=== PATIENT | female | born 1995 | race Caucasian/White ===

== ENCOUNTER 2022-10-30 06:12 | Inpatient (IN) ==
[2022-10-30] MEDS ORDERED: OXYTOCIN 30 UNITS/500 ML BAG IV PRN ×3 (09:25→19:31)
[2022-10-30] MEDS ORDERED: LACTATED RINGER'S 1,000 ML IV PRN (09:25)
[2022-10-30] MEDS ORDERED: LIDOCAINE 1% LOCAL 20 ML VIAL INFIL PRN (09:25)
--- NOTE | 2022-10-30 09:28 | History & Physical Report ---
Date of Service October 30, 2022 Assessment & Plan (1) 40 weeks gestation of : (2) Normal labor: Plan admit for labor. fetus category one. desires epidural. arom/pit as indicated. anticipate . History of Present Illness Chief Complaint: contractions Primary Care Provider: Riaz Galdamez MD Patient is a 27yohf with iup at40 who presents to labor and delivery with contractions. Notes contractions have become more painful with observation and has had nausea with them. Notes she is uncomfortable. has been uncomplicated. and Delivery Plans [place] [facility] [place] antibody screen returned positive. Type is Rh positive Antibody screen done at [facility] [place] on 09/07/22 Negative OB Labs: Blood Type B Positive 08/08/22 Antibody Screen POSITIVE A 08/08/22 Hemoglobin 10.6 g/dl (12.0-16.0) L 08/08/22 Hematocrit 32.7 % (37.0-47.0) L 08/08/22 Mean Corpuscular Volume 82.7 fL (80.0-100.0) 05/24/22 Platelet Count 237 K/uL (130-400) 05/24/22 Rubella IgG Antibody Immune (Immune) 03/21/22 Rapid Plasma Reagin Nonreactive (Nonreactive) 08/08/22 Hepatitis B Surface Antigen. NON-REACTIVE (NON-REACTIVE) 03/21/22 Hepatitis C Antibody (EIA) NON-REACTIVE (NON-REACTIVE) 03/21/22 HIV (1&2) Ag and Ab Confirmation NON-REACTIVE (NON-REACTIVE) 03/21/22 Glucose 1 Hour 50 gm Load 102 mg/dl (70-130) 08/08/22 OB Optional Labs: Chlamydia trachomatis RNA Not Detected (NotDetected) 03/21/22 Neisseria gonorrhoeae RNA Not Detected (NotDetected) 03/21/22 Thyroid Stimulating Hormone (TSH) 1.200 uIu/ml (0.300-4.500) 09/28/21 Labs Reviewed: Declines cf/sma--mln cfdna-low risk--mln gbs neg Allergies Allergy/AdvReac Type Severity Reaction Status Date / Time No Known Allergies Allergy Verified 10/24/22 14:33 Home Medications Medication Instructions Recorded Confirmed Type prenat.vits,loly,[id number] 1 tab PO DAILY 03/14/22 10/30/22 History ferrous sulfate 1 tab PO Q OTHER DAY 10/26/22 10/30/22 History Patient History Medical History ADHD no meds Anxiety no meds History of chicken pox Surgical History H/O dilation and curettage D&E, missed 10/2021 S/P wisdom tooth extraction Family History Mother Rheumatoid arthritis Brother Autism Other Cancer Denies family history of Ovarian cancer Breast cancer Colorectal cancer Social History Smoking Status: Never smoker Second Hand Exposure: No; Do You Dip or Chew Tobacco: No; Hx Alcohol Use: No Hx Substance Use: No Preferred Language: Scottish Communication Ability: Effective Management Nurse Rn Required: No Beliefs That Will Affect Care: None marital status: marital status details: Brent Mayo (27) [phone] Current Living Situation: Spouse Current Living Situation Comment: Lives with her Brent and one dog and two cats current occupational status: employed 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 Date GA wks Lbr Lgth wt Sex Type del Anes Place Del Prov ? 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
[2022-10-30] MEDS ORDERED: ePHEDrine sulfate 50 MG/ML AMP ONE (09:41)
[2022-10-30] MEDS ORDERED: fentaNYL citrate PF 100 MCG/2 ML VIAL ONE (09:41)
[2022-10-30] MEDS ORDERED: SODIUM CHLORIDE 0.9% PF INJ 10 ML VIAL ONE (09:42)
[2022-10-30] MEDS ORDERED: fentaNYL 2MCG/ML ROPIVACAINE 1.25MG/ML 100 ML BAG EPI ONE (09:42)
[2022-10-30] MEDS ORDERED: LIDOCAINE 2%/EPINEPHRINE 1:200,000 20 ML PF ONE (09:42)
[2022-10-30] MEDS ORDERED: BUPIVACAINE 0.25% PF 30 ML VIAL ONE (09:42)
--- NOTE | 2022-10-30 09:57 | Communication Note ---
Date of Service: October 30, 2022 Blood bank made us aware of previous antibody to PG1 in her blood. she was then sent to [facility] [place] and on repeat evaluation, the antibody was negative and told was a lab error. Have not repeated since. Have not run the type and screen here yet, but Pavel in the lab notes that we will need to send to [place] for blood for her, that we will not have any here. I have requested that we send for two units. He has already ordered this. the patient and her are aware.
[2022-10-30 10:03] LABS: Hematocrit (blood only) 37.9 % (37.0-47.0); Hemoglobin 12.6 g/dl (12.0-16.0); Mean Corpuscular Hgb Conc 33.2 g/dL (32.0-36.0); Mean Corpuscular Volume 78.3 fL (80.0-100.0); Mean Platelet Volume 11.6 fL (9.4-12.4); Platelet Count 217 K/uL (130-400); RDW Coefficient of Variation 14.7 % (11.5-14.5); RDW Standard Deviation 41.9 fL (36.4-46.3); Red Blood Count 4.84 M/uL (4.20-5.40); White Blood Count 11.72 K/ul (4.8-10.8)
--- NOTE | 2022-10-30 10:25 | Anesthesiology Consultation ---
Date of Service October 30, 2022 Assessment & Plan Chart Review Chart Review: Acceptable Risk for Labor Epidural Consults Requested none ASA ASA2 Proposed Anesthesia Anesthesia Type: Labor Epidural Risk / Benefits Reviewed With: PT / POA / Parent / Guardian, Accepts Plan and Informed Consent Obtained History Height/Weight Height: 5 ft 4 in Weight: 81.647 kg Allergies Allergy/AdvReac Type Severity Reaction Status Date / Time No Known Allergies Allergy Verified 10/24/22 14:33 Medications Home Medications Medication Instructions Recorded Confirmed Last Taken prenat.vits,loly,lcf-[id number] 1 tab PO DAILY 03/14/22 10/30/22 10/28/22 12:00 ferrous sulfate 1 tab PO Q OTHER DAY 10/26/22 10/30/22 10/24/22 12:00 Past Medical History Medical History ADHD no meds Anxiety no meds History of chicken pox Exercise / Class Metabolic Activity II 4-5 Yardwork/Stairs/Walk up hill Past Family History Family History Mother Rheumatoid arthritis Brother Autism Other Cancer Denies family history of Ovarian cancer Breast cancer Colorectal cancer Past Surgical History Surgical History H/O dilation and curettage D&E, missed 10/2021 S/P wisdom tooth extraction Past Anesthesia History No Hx of Anesthesia Complications and No Family Hx of Anesthesia Complications History of PONV No Hx of PONV and No Hx of Motion Sickness Social History Smoking Status: Never smoker Do You Dip or Chew Tobacco: No Hx Alcohol Use: No Hx Substance Use: No substance use type: does not use Physical Exam Vital Signs Last Vital Signs Temp 98.1 F 10/30/22 06:30 Pulse 107 H 10/30/22 10:18 Resp 18 10/30/22 06:30 BP 111/77 10/30/22 06:44 Pulse Ox 100 10/30/22 10:18 ENMT Mouth: no dentition abnormality Thyromental Distance: > or= 3.5 Finger Breadths Mallampati Class: II Neck normal visual inspection Respiratory normal respiratory effort Auscultation: lungs clear to auscultation bilaterally Cardiovascular Rate/Rhythm: regular rate and regular rhythm Testing Laboratory Results 10/30/22 09:37
[2022-10-30] MEDS ORDERED: ROPIVACAINE 0.5% PF 5 MG/ML 20 ML VIAL EPI PRN (10:47)
[2022-10-30] MEDS ORDERED: LIDOCAINE 2%/EPINEPHRINE 1:200,000 20 ML PF EPI STA (10:47)
[2022-10-30] MEDS ORDERED: fentaNYL citrate PF 100 MCG/2 ML VIAL EPI PRN (10:47)
[2022-10-30] MEDS ORDERED: fentaNYL 2MCG/ML ROPIVACAINE 1.25MG/ML 100 ML BAG EPI PRN (10:47)
[2022-10-30] MEDS ORDERED: NALBUPHINE HCL INJ 10 MG/ML AMP IV PRN (10:47)
[2022-10-30] MEDS ORDERED: diphenhydrAMINE 50 MG/ML VIAL IV PRN (10:47)
[2022-10-30] MEDS ORDERED: BUPIVACAINE 0.25% PF 30 ML VIAL EPI STA (10:47)
[2022-10-30] MEDS ORDERED: SODIUM CHLORIDE 0.9% PF INJ 10 ML VIAL EPI PRN (10:47)
[2022-10-30] MEDS ORDERED: SODIUM CHLORIDE 0.9% PF INJ 10 ML VIAL EPI STA (10:47)
[2022-10-30] MEDS ORDERED: LIDOCAINE 2% MPF LOCAL 5 ML VIAL EPI PRN (10:47)
[2022-10-30] MEDS ORDERED: ONDANSETRON INJ 2 MG/ML 2 ML VIAL IV PRN (10:47)
[2022-10-30] MEDS ORDERED: fentaNYL citrate PF 100 MCG/2 ML VIAL EPI STA (10:47)
[2022-10-30] MEDS ORDERED: BUPIVACAINE 0.25% PF 30 ML VIAL EPI PRN (10:47)
[2022-10-30] MEDS ORDERED: NALOXONE HCL 1 MG in SODIUM CHLORIDE 0.9% 1000ML 1,000 ML IV PRN (10:47)
[2022-10-30] MEDS ORDERED: NALOXONE HCL 0.4 MG/1 ML VIAL/CARP IV PRN (10:47)
[2022-10-30] MEDS ORDERED: ePHEDrine sulfate 50 MG/ML AMP IV PRN (10:47)
--- NOTE | 2022-10-30 11:50 | Obstetrical Progress Note ---
Date of Service October 30, 2022 Assessment & Plan (1) 40 weeks gestation of : (2) Normal labor: Plan arom, fetus category one. anticipate . Blood is on the way from [place]. Admission and Anticipated Discharge Date Admission Date: October 30, 2022 Subjective comfortable with epidural Physical Exam Constitutional: WD/WN, vitals as above Psychiatric: A+Ox3, euthymic affect Genitourinary: cx--3-4/100/-2 arom--clear toco--q2-5min efm--130s with mod variabilty, accels to 160s, no decels Results & Data Vital Signs (Past 12 Hours) Vital Signs Temp Pulse Resp BP Pulse Ox 10/30/22 11:46 90 10/30/22 11:46 127/75 10/30/22 11:44 100 10/30/22 11:44 91 H 10/30/22 11:39 99 10/30/22 11:39 84 10/30/22 11:34 99 10/30/22 11:34 74 10/30/22 11:29 99 10/30/22 11:29 63 10/30/22 11:24 99 10/30/22 11:24 63 10/30/22 11:24 103/56 L 10/30/22 11:19 100 10/30/22 11:19 68 10/30/22 11:14 100 10/30/22 11:14 63 10/30/22 11:13 61 10/30/22 11:13 97/54 L 10/30/22 11:09 99 10/30/22 11:09 70 10/30/22 11:04 100 10/30/22 11:04 72 10/30/22 11:03 59 L 10/30/22 11:03 98/53 L 10/30/22 11:01 63 10/30/22 11:01 92/51 L 10/30/22 10:59 98 10/30/22 10:59 68 10/30/22 10:59 93/52 L 10/30/22 10:57 67 10/30/22 10:57 95/52 L 10/30/22 10:55 68 10/30/22 10:55 92/53 L 10/30/22 10:54 98 10/30/22 10:54 76 10/30/22 10:53 63 10/30/22 10:53 96/51 L 10/30/22 10:51 67 10/30/22 10:51 94/53 L 10/30/22 10:50 18 10/30/22 10:50 36.5 C 18 10/30/22 10:49 98 10/30/22 10:49 80 10/30/22 10:49 75 10/30/22 10:49 88/51 L 10/30/22 10:48 63 10/30/22 10:48 91/50 L 10/30/22 10:47 73 10/30/22 10:47 88/49 L 10/30/22 10:44 97 10/30/22 10:44 84 10/30/22 10:45 75 10/30/22 10:45 93/50 L 10/30/22 10:43 98 H 10/30/22 10:43 102/59 L 10/30/22 10:41 75 10/30/22 10:41 108/64 10/30/22 10:39 97 10/30/22 10:39 79 10/30/22 10:39 77 10/30/22 10:39 102/60 10/30/22 10:34 98 10/30/22 10:34 89 10/30/22 10:29 98 10/30/22 10:29 86 10/30/22 10:24 100 10/30/22 10:24 86 10/30/22 10:18 100 10/30/22 10:18 107 H 10/30/22 10:13 100 10/30/22 10:13 72 10/30/22 10:08 100 10/30/22 10:08 66 10/30/22 10:03 93 10/30/22 10:03 67 10/30/22 09:58 99 10/30/22 09:58 63 10/30/22 09:53 100 10/30/22 09:53 68 10/30/22 09:48 100 10/30/22 09:48 75 10/30/22 06:44 67 111/77 10/30/22 06:30 36.7 C 18 PG Care Time/CCT Total # of Minutes Spent Total Time Spent with Patient: Total time spent is greater than 50% in coordination of care (as documented) at patient's floor/unit and/or counseling patient: Coding Level of Care Code None Diagnoses 40 weeks gestation of Z3A.40 Normal labor O80; Z37.9
--- NOTE | 2022-10-30 15:43 | Obstetrical Progress Note ---
Date of Service October 30, 2022 Assessment & Plan (1) Normal labor: (2) 40 weeks gestation of : Plan continue current management. fetus category one. anticipate . Admission and Anticipated Discharge Date Admission Date: October 30, 2022 Subjective comfortable Physical Exam Constitutional: WD/WN, vitals as above Psychiatric: A+Ox3, euthymic affect Genitourinary: cx--6/100/-1 toco--q2-4min, pit at 4 efm--130s with mod variability, accels present, no decels Results & Data Vital Signs (Past 12 Hours) Vital Signs Temp Pulse Resp BP Pulse Ox 10/30/22 15:39 98 10/30/22 15:39 88 10/30/22 15:34 18 10/30/22 15:34 37.1 C 18 10/30/22 15:34 97 10/30/22 15:34 95 H 10/30/22 15:29 98 10/30/22 15:29 93 H 10/30/22 15:27 75 10/30/22 15:27 118/70 10/30/22 15:24 97 10/30/22 15:24 90 10/30/22 15:19 97 10/30/22 15:19 72 10/30/22 15:14 96 10/30/22 15:14 66 10/30/22 15:11 99 H 10/30/22 15:11 122/66 10/30/22 15:09 97 10/30/22 15:09 70 10/30/22 15:04 97 10/30/22 15:04 76 10/30/22 14:59 97 10/30/22 14:59 69 10/30/22 14:57 63 10/30/22 14:57 107/64 10/30/22 14:54 97 10/30/22 14:54 67 10/30/22 14:49 97 10/30/22 14:49 72 10/30/22 14:44 96 10/30/22 14:44 70 10/30/22 14:42 81 10/30/22 14:42 115/64 10/30/22 14:39 97 10/30/22 14:39 72 10/30/22 14:34 98 10/30/22 14:34 68 10/30/22 14:29 97 10/30/22 14:29 69 10/30/22 14:26 72 10/30/22 14:26 115/64 10/30/22 14:24 98 10/30/22 14:24 78 10/30/22 14:19 98 10/30/22 14:19 83 10/30/22 14:14 98 10/30/22 14:14 101 H 10/30/22 14:13 61 10/30/22 14:13 111/57 L 10/30/22 14:09 98 10/30/22 14:09 63 10/30/22 14:04 98 10/30/22 14:04 69 10/30/22 13:59 97 10/30/22 13:59 75 10/30/22 13:57 62 10/30/22 13:57 112/63 10/30/22 13:54 97 10/30/22 13:54 67 10/30/22 13:49 98 10/30/22 13:49 61 10/30/22 13:44 98 10/30/22 13:44 66 10/30/22 13:42 42 L 10/30/22 13:42 118/61 10/30/22 13:39 99 10/30/22 13:39 89 10/30/22 13:34 98 10/30/22 13:34 63 10/30/22 13:29 98 10/30/22 13:29 65 10/30/22 13:10 16 10/30/22 13:10 16 10/30/22 13:26 41 L 10/30/22 13:26 110/59 L 10/30/22 13:24 98 10/30/22 13:24 75 10/30/22 13:19 98 10/30/22 13:19 79 10/30/22 13:14 98 10/30/22 13:14 65 10/30/22 13:09 98 10/30/22 13:09 67 10/30/22 13:04 98 10/30/22 13:04 68 10/30/22 12:59 99 10/30/22 12:59 57 L 10/30/22 12:58 52 L 10/30/22 12:58 106/60 10/30/22 12:54 99 10/30/22 12:54 56 L 10/30/22 12:49 99 10/30/22 12:49 69 10/30/22 12:44 99 10/30/22 12:44 56 L 10/30/22 12:44 106/62 10/30/22 12:39 98 10/30/22 12:39 56 L 10/30/22 12:34 98 10/30/22 12:34 62 10/30/22 12:29 99 10/30/22 12:29 68 10/30/22 12:29 108/60 10/30/22 12:24 91 10/30/22 12:24 91 H 10/30/22 12:19 99 10/30/22 12:19 79 10/30/22 12:14 98 10/30/22 12:14 64 10/30/22 12:15 60 10/30/22 12:15 109/58 L 10/30/22 12:12 94 10/30/22 12:12 83 10/30/22 12:09 99 10/30/22 12:09 86 10/30/22 12:04 98 10/30/22 12:04 83 10/30/22 11:59 100 10/30/22 11:59 84 10/30/22 11:58 126/81 10/30/22 11:54 98 10/30/22 11:54 76 10/30/22 11:49 98 10/30/22 11:49 82 10/30/22 11:46 90 10/30/22 11:46 127/75 10/30/22 11:44 100 10/30/22 11:44 91 H 10/30/22 11:39 99 10/30/22 11:39 84 10/30/22 11:34 99 10/30/22 11:34 74 10/30/22 11:29 99 10/30/22 11:29 63 10/30/22 11:24 99 10/30/22 11:24 63 10/30/22 11:24 103/56 L 10/30/22 11:19 100 10/30/22 11:19 68 10/30/22 11:14 100 10/30/22 11:14 63 10/30/22 11:13 61 10/30/22 11:13 97/54 L 10/30/22 11:09 99 10/30/22 11:09 70 07/23/23 11:04 100 10/30/22 11:04 72 10/30/22 11:03 59 L 10/30/22 11:03 98/53 L 10/30/22 11:01 63 10/30/22 11:01 92/51 L 10/30/22 10:59 98 10/30/22 10:59 68 10/30/22 10:59 93/52 L 10/30/22 10:57 67 10/30/22 10:57 95/52 L 10/30/22 10:55 68 10/30/22 10:55 92/53 L 10/30/22 10:54 98 10/30/22 10:54 76 10/30/22 10:53 63 10/30/22 10:53 96/51 L 10/30/22 10:51 67 10/30/22 10:51 94/53 L 10/30/22 10:50 18 10/30/22 10:50 36.5 C 18 10/30/22 10:49 98 10/30/22 10:49 80 10/30/22 10:49 75 10/30/22 10:49 88/51 L 10/30/22 10:48 63 10/30/22 10:48 91/50 L 10/30/22 10:47 73 10/30/22 10:47 88/49 L 10/30/22 10:44 97 10/30/22 10:44 84 10/30/22 10:45 75 10/30/22 10:45 93/50 L 10/30/22 10:43 98 H 10/30/22 10:43 102/59 L 10/30/22 10:41 75 10/30/22 10:41 108/64 10/30/22 10:39 97 10/30/22 10:39 79 10/30/22 10:39 77 10/30/22 10:39 102/60 10/30/22 10:34 98 10/30/22 10:34 89 10/30/22 10:29 98 10/30/22 10:29 86 10/30/22 10:24 100 10/30/22 10:24 86 10/30/22 10:18 100 10/30/22 10:18 107 H 10/30/22 10:13 100 10/30/22 10:13 72 10/30/22 10:08 100 10/30/22 10:08 66 10/30/22 10:03 93 10/30/22 10:03 67 10/30/22 09:58 99 10/30/22 09:58 63 10/30/22 09:53 100 10/30/22 09:53 68 10/30/22 09:48 100 10/30/22 09:48 75 10/30/22 06:44 67 111/77 10/30/22 06:30 36.7 C 18 PG Care Time/CCT Total # of Minutes Spent Total Time Spent with Patient: Total time spent is greater than 50% in coordination of care (as documented) at patient's floor/unit and/or counseling patient: Coding Level of Care Code None Diagnoses Normal labor O80; Z37.9 40 weeks gestation of Z3A.40
[2022-10-30] MEDS ORDERED: NURSING L&D Epidural Breakthrough Pain Update ONE (18:17)
[2022-10-30] MEDS ORDERED: ACETAMINOPHEN 325 MG TAB PO PRN (19:31)
[2022-10-30] MEDS ORDERED: BENZOCAINE 20% AER SPR 82.5 GM CAN EXT PRN (19:31)
[2022-10-30] MEDS ORDERED: oxyCODONE/ACETAMINOPHEN 5mg/325mg TAB PO PRN (19:31)
[2022-10-30] MEDS ORDERED: DIPHTHERIA/TETANUS/PERTUSSIS Vaccine (Tdap, Age 7+yrs) 0.5mL SYR/VL IM ONE (19:31)
[2022-10-30] MEDS ORDERED: HYDROCORTISONE ACETATE 25 MG SUPP PR PRN (19:31)
--- NOTE | 2022-10-30 19:35 | Delivery Summary ---
Vaginal Delivery Summary Date of Service October 30, 2022 Vaginal Delivery Summary and 1st Degree LAC Pre-operative Diagnosis: at 40 weeks normal labor Post-operative Diagnosis: same Procedure: epidural arom pitocin augmentation first degree lac and repair EBL: 300cc Anesthesia: epidural Procedure: The patient was admitted to labor and delivery in early active labor. She got an epidural, arom for clear fluid and pitocin augmentation. She progressed to c/c/+2. The patient pushed for about 45 min to deliver a viable female in janina position. The nose and mouth were bulb suctioned on the perineum and the rest of the was then delivered without difficulty. The baby was vigorous. The nose and mouth were again bulb suctioned and the was placed in the maternal abdomen for drying and attention. Cord was clamped and cut at one minute of life. Cord blood and segment obtained. Placenta delivered spontaneous, intact with a three vessel cord. Cervix/sulci/rectum were intact. A first degree perineal laceration was repaired in the normal standard fashion. Hemostasis obtained with dilute pitocin and fundal massage. Apgars were 8/9. Mother and baby doing well at the end of the delivery. [facility] [place] Vaginal Delivery Charge Delivery Type Details: and 1st Degree LAC
[2022-10-30] MEDS: DOCUSATE SODIUM 100 MG CAP PO SCH (23:50)
[2022-10-31] MEDS: IBUPROFEN 600 MG TAB PO PRN ×4 (01:46→20:41)
--- NOTE | 2022-10-31 06:29 | Obstetrical Progress Note ---
Date of Service <Kylee Arreguin MD - Last Filed: 10/31/22 07:38> October 31, 2022 Assessment & Plan <Kylee Arreguin MD - Last Filed: 10/31/22 07:38> (1) Spontaneous vaginal delivery: Patient with the above mentioned history and findings was evaluated at bedside and found awake, alert, oriented in all spheres, afebrile, and in no acute distress. Vital signs showed no fever and blood pressures remained stable with the highest measuring 121/65 recorded yesterday without symptoms of severity (e.g. vision changes, headaches, oliguria, etc.). Her pain intensity is rated as a 4 in a 10-point scale, and is adequately controlled with analgesia. Physical exam unremarkable save for some bilateral lower extremity edema that is likely associated with after-effects of her and the fluids administered. Her blood type is B+ and today's hemoglobin is adequate at 12.6 g/dL. Serologies are negative for GBS and patient patient is Rubella immune. Overall, patient is doing well clinically. Therefore, will encourage ambulation as tolerated and will resume regular diet. Will continue monitoring pain levels and management with current analgesic regimen. Patient is encouraged to breastfeed and to notify changes in normal lochia such as excessive bleeding (using more than 1 pad per hour), foul smell, or purulent appearance. If she remains clinically and hemodynamically stable, discharge may be considered for tomorrow. All questions were answered. <Pau Duncan MD, FACOG - Last Filed: 10/31/22 07:43> (1) Spontaneous vaginal delivery: Subjective <Kylee Arreguin MD - Last Filed: 10/31/22 07:38> Aleisah is a 27 y/o female who is now PPD # 1 following Spontaneous Vaginal Delivery at 40 0/7 weeks gestational age. She reports feeling well overall this morning. Refers mild abdominal cramping & 4/10 pain well managed on analgesics. She is urinating without difficulty and has not had a bowel movement yet, but has passed gas. Tolerating meals overnight and able to ambulate some. She has persistent lochia with some improvement this morning. Breast feeding without issues. Constitutional: no fever, no chills or no sweats Denies changes in vision. Denies shortness of breath or difficulty breathing Cardiovascular: no chest pain or no palpitations Breast: no breast pain Genitourinary (female): no dysuria Neurologic: no headache(s) Physical Exam <Kylee Arreguin MD - Last Filed: 10/31/22 07:38> General: Alert. Oriented to person, time, and place. Afebrile. No acute distress. Eyes: pupils equal and reactive to light bilaterally, extraocular movements intact. Cardiac: Regular rate and rhythm, no murmurs/rubs/gallops. Respiratory: Clear to auscultation bilaterally a/p, no wheezes/rales/rhonchi. No increased work of breathing. Symmetrical chest rise. No respiratory distress. Abdomen: Soft, nontender, nondistended. Bowel sounds present. Uterus: Uterine fundus firm, palpable 1 cm below umbilicus. Lower Extremities: Bilateral lower leg edema. No deep calf pain. Silvia's negative bilaterally. Psych: Euthymic affect. Mood and affect congruence. Regular speech rate and content. Results & Data <Kylee Arreguin MD - Last Filed: 10/31/22 07:38> Vital Signs (Past 12 Hours) Vital Signs Temp Pulse Pulse Resp BP BP Pulse Ox 10/31/22 02:29 36.8 C 63 18 112/66 97 10/30/22 21:20 36.8 C 16 10/30/22 21:11 71 10/30/22 21:11 118/69 10/30/22 20:57 70 10/30/22 20:57 118/62 10/30/22 19:05 18 10/30/22 19:05 37.2 C 18 10/30/22 20:41 121/65 10/30/22 20:29 73 10/30/22 20:29 116/60 10/30/22 20:11 81 10/30/22 20:11 128/60 10/30/22 20:09 96 10/30/22 20:09 82 10/30/22 20:06 94 10/30/22 20:06 84 10/30/22 20:04 93 10/30/22 20:04 79 10/30/22 20:01 92 10/30/22 20:01 79 10/30/22 19:59 97 10/30/22 19:59 71 10/30/22 19:56 74 10/30/22 19:56 114/68 10/30/22 19:54 98 10/30/22 19:54 77 10/30/22 19:49 97 10/30/22 19:49 79 10/30/22 19:44 98 10/30/22 19:44 80 10/30/22 19:41 69 10/30/22 19:41 114/69 10/30/22 19:39 96 10/30/22 19:39 82 10/30/22 19:34 97 10/30/22 19:34 81 10/30/22 19:32 90 10/30/22 19:32 120/73 10/30/22 19:29 97 10/30/22 19:29 81 10/30/22 19:26 76 10/30/22 19:26 119/69 10/30/22 19:24 96 10/30/22 19:24 83 10/30/22 19:19 99 10/30/22 19:19 89 10/30/22 19:14 97 10/30/22 19:14 83 10/30/22 19:12 80 10/30/22 19:12 118/74 10/30/22 19:09 98 10/30/22 19:09 92 H 10/30/22 19:04 98 10/30/22 19:04 78 10/30/22 18:59 98 10/30/22 18:59 92 H 10/30/22 18:58 118 H 10/30/22 18:58 135/75 10/30/22 18:54 97 10/30/22 18:54 93 H 10/30/22 18:49 97 10/30/22 18:49 98 H 10/30/22 18:44 98 10/30/22 18:44 140 H 10/30/22 18:42 108 H 10/30/22 18:42 121/65 10/30/22 18:39 98 10/30/22 18:39 101 H 10/30/22 18:34 99 10/30/22 18:34 118 H 10/30/22 18:29 99 10/30/22 18:29 93 H 10/30/22 18:26 98 H 10/30/22 18:26 109/63 10/30/22 18:24 98 10/30/22 18:24 74 10/30/22 18:19 98 10/30/22 18:19 70 O2 Del Method 10/31/22 02:29 Room Air 10/30/22 21:20 10/30/22 21:11 10/30/22 21:11 10/30/22 20:57 10/30/22 20:57 10/30/22 19:05 10/30/22 19:05 10/30/22 20:41 10/30/22 20:29 10/30/22 20:29 10/30/22 20:11 10/30/22 20:11 10/30/22 20:09 10/30/22 20:09 10/30/22 20:06 10/30/22 20:06 10/30/22 20:04 10/30/22 20:04 10/30/22 20:01 10/30/22 20:01 10/30/22 19:59 10/30/22 19:59 10/30/22 19:56 10/30/22 19:56 10/30/22 19:54 10/30/22 19:54 10/30/22 19:49 10/30/22 19:49 10/30/22 19:44 10/30/22 19:44 10/30/22 19:41 10/30/22 19:41 10/30/22 19:39 10/30/22 19:39 10/30/22 19:34 10/30/22 19:34 10/30/22 19:32 10/30/22 19:32 10/30/22 19:29 10/30/22 19:29 10/30/22 19:26 10/30/22 19:26 10/30/22 19:24 10/30/22 19:24 10/30/22 19:19 10/30/22 19:19 10/30/22 19:14 10/30/22 19:14 10/30/22 19:12 10/30/22 19:12 10/30/22 19:09 10/30/22 19:09 10/30/22 19:04 10/30/22 19:04 10/30/22 18:59 10/30/22 18:59 10/30/22 18:58 10/30/22 18:58 10/30/22 18:54 10/30/22 18:54 10/30/22 18:49 10/30/22 18:49 10/30/22 18:44 10/30/22 18:44 10/30/22 18:42 10/30/22 18:42 10/30/22 18:39 10/30/22 18:39 10/30/22 18:34 10/30/22 18:34 10/30/22 18:29 10/30/22 18:29 10/30/22 18:26 10/30/22 18:26 10/30/22 18:24 10/30/22 18:24 10/30/22 18:19 10/30/22 18:19 <Pau Duncan MD, FACOG - Last Filed: 10/31/22 07:43> Co-Signing Physician Notes Resident Physician Supervision Note: I interviewed and examined the patient. Discussed with Dr. Arreguin and agree with findings and plan as documented in the note. Any exceptions or clarifications are listed here: Doing well. Routine care. Documented By: Pau Duncan MD, FACOG Resident Activity Tracking <Kylee Arreguin MD - Last Filed: 10/31/22 07:38> Resident Involvement: Resident Care Provided Care Provided: OB Delivery
--- NOTE | 2022-10-31 07:47 | Anesthesia Procedure Note ---
Date of Service October 31, 2022 Anesthesia Post Epidural Note Vital Signs Vital Signs: Temp Pulse Resp BP Pulse Ox O2 Del Method 36.8 C 63 18 112/66 97 Room Air 10/31/22 02:10/31/22 02:10/31/22 02:10/31/22 02:10/31/22 02:10/31/22 02:29 Pain Intensity Bilateral Lower Back: Pain Intensity: 0 Notes Mental Status: alert / awake / arousable Nausea / Vomiting: adequately controlled Pain: adequately controlled Airway Patency, RR, SpO2: stable & adequate BP & HR: stable & adequate Hydration State: stable & adequate Neuraxial Anesthesia: was administered and sensory block is resolving Anesthetic Complications: no major complications apparent and Pt Satisfied with anesthetic care Epidural: Removed without complications and With tip intact
[2022-10-31] MEDS: DOCUSATE SODIUM 100 MG CAP PO SCH ×2 (07:58→20:41)
[2022-10-31] MEDS: PRENATAL VITAMIN 1 TAB PO SCH (07:59)
[2022-10-31 09:06] LABS: Hematocrit (blood only) 35.9 % (37.0-47.0); Hemoglobin 11.5 g/dl (12.0-16.0)
[2022-10-31] MEDS ORDERED: bisacodyL 5 MG TABEC PO SCH (20:00)
--- NOTE | 2022-11-01 05:12 | Obstetrical Progress Note ---
Date of Service <Kylee Arreguin MD - Last Filed: 11/01/22 07:37> November 01, 2022 Assessment & Plan <Kylee Arreguin MD - Last Filed: 11/01/22 07:37> (1) Spontaneous vaginal delivery: Patient with the above mentioned history and findings was evaluated at bedside and found awake, alert, oriented in all spheres, afebrile, and in no acute distress. Vital signs showed no fever and blood pressures remained stable and has remained without symptoms of severity (e.g. vision changes, headaches, oliguria, etc.). Her pain intensity is rated as a 4 in a 10-point scale, and is adequately controlled with analgesia. Her bilateral lower extremity swelling has improved in comparison with yesterday's evaluation. Her blood type is B+ and today's hemoglobin is adequate at 11.5 g/dL. Serologies are negative for GBS and patient patient is Rubella immune. Overall, patient is doing well clinically and hemodynamically. Therefore, will encourage ambulation as tolerated and will resume regular diet. Will continue monitoring pain levels and management with current analgesic regimen. Patient is encouraged to breastfeed and to notify changes in normal lochia such as excessive bleeding (using more than 1 pad per hour), foul smell, or purulent appearance. She was oriented as to the discharge instructions. She is to make an appointment with her OB in 6 weeks for follow up evaluation. All questions were answered. <Ava Pate MD - Last Filed: 11/01/22 07:55> (1) Spontaneous vaginal delivery: Subjective <Kylee Arreguin MD - Last Filed: 11/01/22 07:37> Aleisha is a 27 y/o female who is now PPD # 2 following Spontaneous Vaginal Delivery at 40 0/7 weeks gestational age. She reports feeling well overall this morning. Refers mild abdominal cramping & 4/10 pain well managed on analgesics. She is urinating without difficulty and has not had a bowel movement yet, but has passed gas. Tolerating meals overnight and able to ambulate some. She has persistent lochia with some improvement this morning. Breast feeding without issues. Constitutional: no fever, no chills or no sweats Denies vision changes. Denies shortness of breath or difficulty breathing Cardiovascular: no chest pain or no palpitations Breast: no breast pain Genitourinary (female): no dysuria Neurologic: no headache(s) Physical Exam <Kylee Arreguin MD - Last Filed: 11/01/22 07:37> General: Alert. Oriented to person, time, and place. Afebrile. No acute distress. Eyes: pupils equal and reactive to light bilaterally, extraocular movements intact. Cardiac: Regular rate and rhythm, no murmurs/rubs/gallops. Respiratory: Clear to auscultation bilaterally a/p, no wheezes/rales/rhonchi. No increased work of breathing. Symmetrical chest rise. No respiratory distress. Abdomen: Soft, nontender, nondistended. Bowel sounds present. Uterus: Uterine fundus firm, non-tender, and palpable 3 cm below umbilicus. Lower Extremities: Improved lower extremity swelling. No pitting edema. No deep calf pain. Silvia's negative bilaterally. Psych: Euthymic affect. Mood and affect congruence. Regular speech rate and content. Results & Data <Kylee Arreguin MD - Last Filed: 11/01/22 07:37> Vital Signs (Past 12 Hours) Vital Signs Temp Pulse Resp BP Pulse Ox O2 Del Method 10/31/22 23:30 36.7 C 63 18 104/66 97 Room Air 10/31/22 19:55 36.7 C 91 H 18 96/58 L 98 Room Air <Ava Pate MD - Last Filed: 11/01/22 07:55> Co-Signing Physician Notes Resident Physician Supervision Note: I interviewed and examined the patient. Discussed with Dr. Arreguin and agree with findings and plan as documented in the note. Any exceptions or clarifications are listed here: 27 yo PP2 s/p , doing well. VSS, exam benign and wnl. Stable for d/c home Documented By: Ava Pate MD Resident Activity Tracking <Kylee Arreguin MD - Last Filed: 11/01/22 07:37> Resident Involvement: Resident Care Provided Care Provided: OB Delivery
[2022-11-01] MEDS: PRENATAL VITAMIN 1 TAB PO SCH (07:23)
[2022-11-01] MEDS: DOCUSATE SODIUM 100 MG CAP PO SCH (07:23)
[2022-11-01] MEDS ORDERED: bisacodyL 10 MG SUPP PR PRN (09:00)
== END 2022-11-01 13:35 | disposition home or self-care (01) | DRG 807 ==
LOC: OPB 06:12 → 4S1 06:14 → 4E2 22:16

== ENCOUNTER 2024-06-27 10:25 | Observation (INO) ==
[2024-06-27] MEDS: LACTATED RINGER'S 1,000 ML IV SCH (11:10)
--- NOTE | 2024-06-27 14:12 | Obstetrical Progress Note ---
Date of Service June 27, 2024 Assessment & Plan (1) Supervision of normal intrauterine in multigravida: Plan: 28 yo at 38 wga presented for prolonged monitoring VSS NST became reactive SVE changed over 2hr period, ?early labor as is ctx, pt feels like period cramps irreg but change noted. Will plan to recheck in a few hours Subjective 28 yo at 38 wga presents for prolonged monitoring. Was seen for shyam today but noted decreased fm today so put on NST where few variables noted and NR so sent for monitoring. Notes baby is generally quieter this vs last but usually feels movement, today was less. Some irregular ctx, denies LOF, VB PNI: None Physical Exam Genitourinary: Initial EFM was 145/mod/+accels and had two variables, ctx q4 noted but rates as cramping With IVF, 145/mod/+accels/-decels, variables seem to have resolved SVE 1+ initially, recheck 2hrs later was 2+/50/-2 Results & Data Vital Signs (Past 12 Hours) Vital Signs Temp Pulse Resp BP Pulse Ox 06/27/24 14:09 93 06/27/24 14:09 81 06/27/24 13:56 93 06/27/24 13:56 76 06/27/24 13:42 100 06/27/24 13:42 72 06/27/24 13:42 94 06/27/24 13:42 78 06/27/24 13:25 98 06/27/24 13:25 73 06/27/24 13:10 99 06/27/24 13:10 70 06/27/24 13:10 93 06/27/24 13:10 69 06/27/24 12:55 100 06/27/24 12:55 73 06/27/24 12:51 91 06/27/24 12:51 72 06/27/24 12:40 100 06/27/24 12:40 75 06/27/24 12:31 92 06/27/24 12:31 94 H 06/27/24 12:25 97 06/27/24 12:25 75 06/27/24 12:10 99 06/27/24 12:10 76 06/27/24 11:55 92 06/27/24 11:55 81 06/27/24 11:50 98 03/20/25 11:50 71 06/27/24 11:45 99 06/27/24 11:45 76 06/27/24 11:40 99 06/27/24 11:40 80 06/27/24 11:35 98 06/27/24 11:35 74 06/27/24 11:30 97 06/27/24 11:30 119 H 06/27/24 11:25 98 06/27/24 11:25 99 H 06/27/24 11:20 97 06/27/24 11:20 74 06/27/24 11:15 95 06/27/24 11:15 86 06/27/24 11:13 93 06/27/24 11:13 75 06/27/24 11:10 96 06/27/24 11:10 108 H 06/27/24 11:05 98 06/27/24 11:05 81 06/27/24 11:00 98 06/27/24 11:00 88 06/27/24 10:55 98 06/27/24 10:55 94 H 06/27/24 10:50 99 06/27/24 10:50 83 06/27/24 10:45 97 06/27/24 10:45 78 06/27/24 10:40 98 06/27/24 10:40 83 06/27/24 10:35 99 06/27/24 10:35 80 06/27/24 10:33 97.7 F 18 06/27/24 10:31 75 128/78 06/27/24 10:30 79 100 PG Care Time/CCT Total # of Minutes Spent Total Time Spent with Patient: Total time spent is greater than 50% in coordination of care (as documented) at patient's floor/unit and/or counseling patient: Coding Level of Care Code None Diagnoses Supervision of normal intrauterine in multigravida Z34.80
[2024-06-27 15:02] VITALS: O2SAT 94
[2024-06-27] MEDS ORDERED: LIDOCAINE 1% LOCAL 20 ML VIAL INFIL PRN (18:40)
[2024-06-27] MEDS ORDERED: OXYTOCIN 30 UNITS/NSS 30 UNITS/500 ML BAG IV PRN (18:40)
[2024-06-27] MEDS ORDERED: LACTATED RINGER'S 1,000 ML IV PRN (18:40)
[2024-06-27 19:18] LABS: Hematocrit (blood only) 34.8 % (37.0-47.0); Hemoglobin 10.7 g/dl (12.0-16.0); Mean Corpuscular Hemoglobin 23.8 pg (25.0-34.0); Mean Corpuscular Hgb Conc 30.7 g/dL (32.0-36.0); Mean Corpuscular Volume 77.3 fL (80.0-100.0); Mean Platelet Volume 11.8 fL (9.4-12.4); Platelet Count 240 K/uL (130-400); RDW Standard Deviation 41.2 fL (36.4-46.3); White Blood Count 9.88 K/ul (4.8-10.8)
--- NOTE | 2024-06-27 19:31 | History & Physical Report ---
Date of Service June 27, 2024 Assessment & Plan (1) Supervision of normal intrauterine in multigravida: Plan: 28 yo at 38 wga presented for prolonged monitoring and found to be in early labor VSS Fetus primarily cat 1, occ has periods of cat 2 with variables Labor - slow progress noted, continue expectant management GBS neg epidural prn History of Present Illness Chief Complaint: monitoring, ctx Primary Care Provider: Maye Hackett MD 28 yo at 38 wga presented earlier for prolonged monitoring however was found to be in early labor. 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 denies hx stis Allergies Allergy/AdvReac Type Severity Reaction Status Date / Time No Known Allergies Allergy Verified 06/27/24 09:08 Home Medications Medication Instructions Recorded Confirmed Type vits no.124-ferrous fum 1 tab PO DAILY 06/27/24 06/27/24 History 27 mg iron-folic acid 800 mcg tablet ( Vitamin) Patient History Medical History History of chicken pox ADHD no meds Anxiety no meds Missed Surgical History H/O dilation and curettage D&E, missed 10/2021 S/P wisdom tooth extraction Family History (Updated 11/24/23 @ 10:52 by Stacey Yarbrough LPN) Mother Rheumatoid arthritis Brother Autism Aunt Myocardial infarction Other Cancer Denies family history of Ovarian cancer Prostate cancer Breast cancer Colorectal cancer Social History (Updated 11/24/23 @ 10:54 by Stacey Yarbrough LPN) Smoking Status: Never smoker Second Hand Exposure: No; Do You Dip or Chew Tobacco: No; Hx Alcohol Use: No Hx Substance Use: No Preferred Language: Ivorian Communication Ability: Effective 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 Beliefs That Will Affect Care: None marital status: marital status details: Brent Mayo (29) [phone] Current Living Situation: Spouse and Family Current Living Situation Comment: and daughter with 2 cats and a dog current occupational status: 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 How many Children do You have: 1 Other Information That Helps Us Care for You: No Feels Safe at Home: Yes Safety Concerns: Feels Safe At This Time Assistive Devices: None Physical Exam Genitourinary: OB Exam Abdomen: + estimated weight (8-9) OB Exam Monitor Tracing: + external FHT monitor used and + external uterine monitor used SVE was 1cm initially, slowly progressed to 3cm, 350/-2 EFM 145/mod/+accel/rarely has occ variable [place] q3 Results & Data Vital Signs (Past 12 Hours) Vital Signs Temp Pulse Resp BP Pulse Ox 06/27/24 15:01 94 06/27/24 15:01 76 06/27/24 15:00 98.1 F 16 06/27/24 14:58 84 06/27/24 14:58 118/71 06/27/24 14:56 93 06/27/24 14:56 86 06/27/24 14:56 94 06/27/24 14:56 90 06/27/24 14:46 94 06/27/24 14:46 85 06/27/24 14:26 96 06/27/24 14:26 100 H 06/27/24 14:09 93 06/27/24 14:09 81 06/27/24 13:56 93 06/27/24 13:56 76 06/27/24 13:42 100 06/27/24 13:42 72 06/27/24 13:42 94 06/27/24 13:42 78 06/27/24 13:25 98 06/27/24 13:25 73 06/27/24 13:10 99 06/27/24 13:10 70 06/27/24 13:10 93 06/27/24 13:10 69 06/27/24 12:55 100 06/27/24 12:55 73 06/27/24 12:51 91 06/27/24 12:51 72 06/27/24 12:40 100 06/27/24 12:40 75 06/27/24 12:31 92 06/27/24 12:31 94 H 06/27/24 12:25 97 06/27/24 12:25 75 06/27/24 12:10 99 06/27/24 12:10 76 06/27/24 11:55 92 06/27/24 11:55 81 06/27/24 11:50 98 06/27/24 11:50 71 06/27/24 11:45 99 06/27/24 11:45 76 06/27/24 11:40 99 06/27/24 11:40 80 06/27/24 11:35 98 06/27/24 11:35 74 06/27/24 11:30 97 06/27/24 11:30 119 H 06/27/24 11:25 98 06/27/24 11:25 99 H 06/27/24 11:20 97 06/27/24 11:20 74 06/27/24 11:15 95 06/27/24 11:15 86 06/27/24 11:13 93 06/27/24 11:13 75 06/27/24 11:10 96 06/27/24 11:10 108 H 06/27/24 11:05 98 06/27/24 11:05 81 06/27/24 11:00 98 06/27/24 11:00 88 06/27/24 10:55 98 06/27/24 10:55 94 H 06/27/24 10:50 99 06/27/24 10:50 83 06/27/24 10:45 97 06/27/24 10:45 78 06/27/24 10:40 98 06/27/24 10:40 83 06/27/24 10:35 99 06/27/24 10:35 80 06/27/24 10:33 97.7 F 18 06/27/24 10:31 75 128/78 06/27/24 10:30 79 100 Laboratory Results OB Labs: Blood Type B Positive 12/04/23 Antibody Screen NEGATIVE 12/04/23 Hgb 10.9 g/dl (12.0-16.0) L 04/24/24 Hct 35.1 % (37.0-47.0) L 04/24/24 MCV 83.5 fL (80.0-100.0) 12/04/23 Plt Count 285 K/uL (130-400) 12/04/23 Rubella IgG Antibody Immune (Immune) 12/04/23 RPR Nonreactive (Nonreactive) 08/08/22 Treponema pallidum Ab Negative (Negative) 04/24/24 Hep Bs Antigen Negative (Negative) 12/04/23 Hep Bs Antigen NON-REACTIVE (NON-REACTIVE) 03/21/22 Hepatitis C Antibody Negative (Negative) 12/04/23 Hepatitis C Ab (EIA) NON-REACTIVE (NON-REACTIVE) 03/21/22 HIV 1&2 Ab/P24 Ag 4thGn Negative (Negative) 12/04/23 HIV (1&2) Ag & Ab Conf NON-REACTIVE (NON-REACTIVE) 03/21/22 Glucose 1 Hr 50 gm 115 mg/dl (70-130) 04/24/24 OB Optional Labs: Chlamydia trachomatis RNA Not Detected (NotDetected) 12/04/23 Neisseria gonorrhoeae RNA Not Detected (NotDetected) 12/04/23 Thyroid Stimulating Hormone (TSH) 1.200 uIu/ml (0.300-4.500) 09/28/21 Labs Reviewed: Declines cf/sma--mln cfdna-low risk--mln gbs neg Diagnostic Findings ant plac Coding Level of Care Code None Diagnoses Supervision of normal intrauterine in multigravida Z34.80
--- NOTE | 2024-06-27 22:24 | Labor Progress Brief Note ---
Date of Service June 27, 2024 Subjective occ back pain Assessment & Plan (1) Supervision of normal intrauterine in multigravida: Plan: 28 yo at 38 wga presented for prolonged monitoring and found to be in early labor VSS Fetus cat 1 Labor - progress again noted. Offered arom, would like to wait GBS neg epidural prn Admission and Anticipated Discharge Date Admission Date: June 27, 2024 Physical Exam Genitourinary: Manual OB Exam: + cervical dilation 4 cm, + cervical effacement 50% and + station -2 OB Exam Monitor Tracing: + external FHT monitor used, + external uterine monitor used (irreg ctx) and + category I (140/mod/+acc/-decel) Results & Data Vital Signs (Past 12 Hours) Vital Signs Temp Pulse Resp BP Pulse Ox O2 Del Method 06/27/24 19:00 98.2 F 18 06/27/24 19:00 Room Air 06/27/24 18:59 18 06/27/24 18:59 98.2 F 18 06/27/24 18:59 68 06/27/24 18:59 116/69 06/27/24 15:01 94 06/27/24 15:01 76 06/27/24 15:00 98.1 F 16 06/27/24 14:58 84 06/27/24 14:58 118/71 06/27/24 14:56 93 06/27/24 14:56 86 06/27/24 14:56 94 06/27/24 14:56 90 06/27/24 14:46 94 06/27/24 14:46 85 06/27/24 14:26 96 06/27/24 14:26 100 H 06/27/24 14:09 93 06/27/24 14:09 81 06/27/24 13:56 93 06/27/24 13:56 76 06/27/24 13:42 100 06/27/24 13:42 72 06/27/24 13:42 94 06/27/24 13:42 78 06/27/24 13:25 98 06/27/24 13:25 73 06/27/24 13:10 99 06/27/24 13:10 70 06/27/24 13:10 93 06/27/24 13:10 69 06/27/24 12:55 100 06/27/24 12:55 73 06/27/24 12:51 91 06/27/24 12:51 72 06/27/24 12:40 100 06/27/24 12:40 75 06/27/24 12:31 92 06/27/24 12:31 94 H 06/27/24 12:25 97 06/27/24 12:25 75 06/27/24 12:10 99 06/27/24 12:10 76 06/27/24 11:55 92 06/27/24 11:55 81 06/27/24 11:50 98 06/27/24 11:50 71 06/27/24 11:45 99 06/27/24 11:45 76 06/27/24 11:40 99 06/27/24 11:40 80 06/27/24 11:35 98 06/27/24 11:35 74 06/27/24 11:30 97 06/27/24 11:30 119 H 06/27/24 11:25 98 06/27/24 11:25 99 H 06/27/24 11:20 97 06/27/24 11:20 74 06/27/24 11:15 95 06/27/24 11:15 86 06/27/24 11:13 93 06/27/24 11:13 75 06/27/24 11:10 96 06/27/24 11:10 108 H 06/27/24 11:05 98 06/27/24 11:05 81 06/27/24 11:00 98 06/27/24 11:00 88 06/27/24 10:55 98 06/27/24 10:55 94 H 06/27/24 10:50 99 06/27/24 10:50 83 06/27/24 10:45 97 06/27/24 10:45 78 06/27/24 10:40 98 06/27/24 10:40 83 06/27/24 10:35 99 06/27/24 10:35 80 06/27/24 10:33 97.7 F 18 06/27/24 10:31 75 128/78 06/27/24 10:30 79 100 Coding Level of Care Code None Diagnoses Supervision of normal intrauterine in multigravida Z34.80
[2024-06-28 07:09] VITALS: BP 120/72; PULSE 66
[2024-06-28 07:13] VITALS: RESP 18; TEMP 97.9
--- NOTE | 2024-06-28 08:04 | Labor Progress Brief Note ---
Date of Service June 28, 2024 Subjective felt a couple ctx Assessment & Plan (1) Supervision of normal intrauterine in multigravida: Plan: 28 yo at 38 wga presented for prolonged monitoring and found to be in early labor VSS Fetus cat 1, ?spot that was late vs variability but did not recur. Continue to monitor Labor - progress again noted, prefers to wait for arom. GBS neg epidural prn Admission and Anticipated Discharge Date Admission Date: June 27, 2024 Physical Exam Genitourinary: Manual OB Exam: + cervical dilation 5 cm, + cervical effacement 50% and + station -2 OB Exam Monitor Tracing: + external FHT monitor used, + external uterine monitor used (irreg ctx) and + category I (145/mod/+acc/?late x1 vs variability) Results & Data Vital Signs (Past 12 Hours) Vital Signs Temp Pulse Resp BP 06/28/24 07:08 66 120/72 06/28/24 07:06 18 06/28/24 07:06 97.9 F 18 06/28/24 03:48 98.1 F 69 99/53 L 06/27/24 23:33 16 06/27/24 23:33 97.9 F 16 06/27/24 23:33 82 06/27/24 23:33 92/52 L Coding Level of Care Code None Diagnoses Supervision of normal intrauterine in multigravida Z34.80
--- NOTE | 2024-06-28 09:26 | Obstetrical Progress Note ---
Date of Service June 28, 2024 Assessment & Plan (1) False labor after 37 completed weeks of gestation: Plan no evidence of active labor. pt given option to go home and desires such. keep planned appt next wk. [facility] bid starting tomorrow reviewed. feels good fm now. thinks her poor fm yest was due to dehydration. nst reactive Admission and Anticipated Discharge Date Admission Date: June 27, 2024 Subjective pt not really feeling regular ctx. no rom. no vb. +FM. Review of Systems Constitutional: as per Subjective / HPI Physical Exam Constitutional: WD/WN, vitals as above Genitourinary: Manual OB Exam: + cervical dilation (can barely reach cx ?3- 4cm, prob unchanged from prior md exam), + cervical effacement (25%) and + station (posterior) high OB Exam Monitor Tracing: + external FHT monitor used, + external uterine monitor used (q5), + category I and + normal FHT variability Results & Data Vital Signs (Past 12 Hours) Vital Signs Temp Pulse Resp BP 06/28/24 07:08 66 120/72 06/28/24 07:06 18 06/28/24 07:06 97.9 F 18 06/28/24 03:48 98.1 F 69 99/53 L 06/27/24 23:33 16 06/27/24 23:33 97.9 F 16 06/27/24 23:33 82 06/27/24 23:33 92/52 L PG Care Time/CCT Total # of Minutes Spent Total Time Spent with Patient: Total time spent is greater than 50% in coordination of care (as documented) at patient's floor/unit and/or counseling patient: Coding Level of Care Code 33105 OP VST EST LOW 20 MIN Diagnoses False labor after 37 completed weeks of gestation O47.1 CPT Codes Misx Procedure Codes - 58440 NST: 63707 NST ([id number]) BUCKRAM SEWER Miscellaneous Codes Misx Procedure Codes 36557 NST
--- NOTE | 2024-07-01 14:13 | Discharge Summary ---
Date of Service Day of admission 06/27/24 Day of discharge: June 28, 2024 Admission HPI Per Admitting Provider 28 yo at 38 wga presented earlier for prolonged monitoring however was found to be in early labor. 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 Will followup in office as scheduled. Call with worsening parameters to suggest labor which were reviewed. NST reactive. [facility] bid reviewed. Coding Level of Care Code None Diagnoses False labor after 37 completed weeks of gestation O47.1
== END 2024-06-28 10:00 | disposition home or self-care (01) ==
LOC: OPB 10:25 → 4S1 10:27 → INTOOBSV 18:40 → 4S1 18:40

== ENCOUNTER 2024-07-05 08:55 | Inpatient (IN) ==
[2024-07-05] MEDS ORDERED: CALCIUM CARBONATE 500 MG CHEWABLE TAB PO PRN (11:47)
[2024-07-05] MEDS ORDERED: LIDOCAINE 1% LOCAL 20 ML VIAL INFIL PRN (11:47)
[2024-07-05] MEDS ORDERED: ACETAMINOPHEN 500 MG TAB PO PRN (11:47)
--- NOTE | 2024-07-05 11:55 | History & Physical Report ---
Date of Service July 05, 2024 Assessment & Plan (1) Supervision of normal intrauterine in multigravida: Plan -Vital Signs Stable -Category I Tracing -Start Pitocin if needed -Labs Ordered -Monitor progress of labor -Blood Group: B positive; GBS negative -Epidural when she desires History of Present Illness Primary Care Provider: Maye Hackett MD Patient is a 28yo female currently at 39+1WGA with an MARIAA 07/11/24 as determined by LMP who is here for labor check. Presence of contractions since morning; movement present; No fluid loss; No bloody show External FHT and external uterine monitors used; category I tracing; normal FHT variability Had regular appointments with OB. Allergies Allergy/AdvReac Type Severity Reaction Status Date / Time No Known Allergies Allergy Verified 07/05/24 12:19 Home Medications Medication Instructions Recorded Confirmed Type vits no.124-ferrous fum 1 tab PO DAILY 06/27/24 07/05/24 History 27 mg iron-folic acid 800 mcg tablet ( Vitamin) Patient History Medical History History of chicken pox ADHD no meds Anxiety no meds Missed Surgical History H/O dilation and curettage D&E, missed 10/2021 S/P wisdom tooth extraction Family History Mother Rheumatoid arthritis Brother Autism Aunt Myocardial infarction Other Cancer Denies family history of Ovarian cancer Prostate cancer Breast cancer Colorectal cancer Social History Smoking Status: Never smoker Second Hand Exposure: No; Do You Dip or Chew Tobacco: No; Tobacco Cessation Education Requested by Patient: No Hx Alcohol Use: No Hx Substance Use: No Preferred Language: Azeri Communication Ability: Effective 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 No acute distress CV: Regular rate and rhythm. No murmurs. Respiratory: CTA bilaterally. No rhonchi, wheezes, or crackles. No increased work of breathing. Abdomen: Gravid; Soft, nontender upon palpation Pelvic: Dilated 6 cm; Effacement 70%; Station -[address] Morin Lower extremities: No LE edema. No deep calf pain. Silvia's negative bilaterally. Results & Data Vital Signs (Past 12 Hours) Vital Signs Temp Pulse Resp BP 07/05/24 09:08 36.7 C 18 07/05/24 09:03 36.7 C 93 H 18 124/77 Supervising Physician Co-Signing Physician Notes Patient seen and evaluated and agree with the above findings and plan.
[2024-07-05] MEDS: LACTATED RINGER'S 1,000 ML IV PRN (12:09)
[2024-07-05 12:36] LABS: Hematocrit (blood only) 37.8 % (37.0-47.0); Hemoglobin 11.5 g/dl (12.0-16.0); Mean Corpuscular Hemoglobin 23.6 pg (25.0-34.0); Mean Corpuscular Hgb Conc 30.4 g/dL (32.0-36.0); Mean Corpuscular Volume 77.6 fL (80.0-100.0); Mean Platelet Volume 11.4 fL (9.4-12.4); Platelet Count 268 K/uL (130-400); RDW Coefficient of Variation 15.1 % (11.5-14.5); RDW Standard Deviation 41.5 fL (36.4-46.3); Red Blood Count 4.87 M/uL (4.20-5.40)
[2024-07-05] MEDS: fentANYL 2 MCG/ML BUPIVacaine 0.125%-NSS 100ML BAG ONE (13:23)
[2024-07-05] MEDS: SODIUM CHLORIDE 0.9% PF INJ 10 ML VIAL ONE (13:26)
[2024-07-05] MEDS: BUPIVACAINE 0.25% PF 30 ML VIAL ONE (13:27)
[2024-07-05] MEDS ORDERED: NALBUPHINE HCL INJ 10 MG/ML AMP IV PRN (13:28)
[2024-07-05] MEDS ORDERED: LIDOCAINE 2% MPF LOCAL 5 ML VIAL EPI PRN (13:28)
[2024-07-05] MEDS ORDERED: fentaNYL citrate PF 100 MCG/2 ML VIAL EPI PRN (13:28)
[2024-07-05] MEDS ORDERED: SODIUM CHLORIDE 0.9% PF INJ 10 ML VIAL EPI PRN (13:28)
[2024-07-05] MEDS ORDERED: NALOXONE HCL 0.4 MG/1 ML VIAL/CARP IV PRN (13:28)
[2024-07-05] MEDS ORDERED: PROMETHAZINE 6.25 MG/50.25 ML BAG IV PRN (13:28)
[2024-07-05] MEDS ORDERED: BUPIVACAINE 0.25% PF 30 ML VIAL EPI PRN (13:28)
[2024-07-05] MEDS: LIDOCAINE 2%/EPINEPHRINE 1:200,000 20 ML PF ONE (13:28)
[2024-07-05] MEDS ORDERED: NALOXONE HCL 1 MG in SODIUM CHLORIDE 0.9% 1,000 ML IV PRN (13:28)
[2024-07-05] MEDS ORDERED: ROPIVACAINE 0.5% PF 5 MG/ML 20 ML VIAL EPI PRN (13:28)
[2024-07-05] MEDS ORDERED: diphenhydrAMINE 50 MG/ML VIAL IV PRN (13:28)
--- NOTE | 2024-07-05 13:28 | Anesthesiology Consultation ---
Date of Service July 05, 2024 Assessment & Plan Chart Review Chart Review: Patient NOT seen in Pre Admission Testing and Acceptable Risk for Labor Epidural Consults Requested none ASA ASA2 Proposed Anesthesia Anesthesia Type: Labor Epidural Risk / Benefits Reviewed With: PT / POA / Parent / Guardian, Accepts Plan and Informed Consent Obtained History Height/Weight Height: 5 ft 4 in Weight: 81.193 kg Allergies Allergy/AdvReac Type Severity Reaction Status Date / Time No Known Allergies Allergy Verified 07/05/24 12:19 Medications Home Medications Medication Instructions Recorded Confirmed Last Taken vits no.124-ferrous fum 1 tab PO DAILY 06/27/24 07/05/24 07/04/24 27 mg iron-folic acid 800 mcg tablet ( Vitamin) Active Medications Generic Name Dose Route Start Last Admin Trade Name Freq PRN Reason Stop Dose Admin Lactated Ringer's 1,000 mls @ 125 mls/hr 07/05/24 11:47 07/05/24 13:08 Lr IV 07/06/24 11:46 999 mls/hr .Q8H PRN Infusion L&D Protocol Protocol Past Medical History Medical History History of chicken pox ADHD no meds Anxiety no meds Missed Exercise / Class Metabolic Activity II 4-5 Yardwork/Stairs/Walk up hill Past Family History Family History Mother Rheumatoid arthritis Brother Autism Aunt Myocardial infarction Other Cancer Denies family history of Ovarian cancer Prostate cancer Breast cancer Colorectal cancer Past Surgical History Surgical History H/O dilation and curettage D&E, missed 10/2021 S/P wisdom tooth extraction Past Anesthesia History No Hx of Anesthesia Complications and No Family Hx of Anesthesia Complications History of PONV No Hx of PONV and No Hx of Motion Sickness Social History Smoking Status: Never smoker Do You Dip or Chew Tobacco: No Hx Alcohol Use: No Hx Substance Use: No substance use type: does not use Physical Exam Vital Signs Last Vital Signs Temp 36.9 C 07/05/24 12:47 Pulse 78 07/05/24 13:27 Resp 18 07/05/24 12:47 BP 103/59 L 07/05/24 13:27 Pulse Ox 100 07/05/24 13:27 ENMT Mouth: no dentition abnormality Thyromental Distance: > or= 3.5 Finger Breadths Mallampati Class: II Neck normal visual inspection Respiratory normal respiratory effort Auscultation: lungs clear to auscultation bilaterally Cardiovascular Rate/Rhythm: regular rate and regular rhythm Psychiatric Orientation: alert Testing Laboratory Results 07/05/24 12:10
[2024-07-05] MEDS: ePHEDrine sulfate 50 MG/ML AMP IV PRN (14:30)
[2024-07-05] MEDS: fentaNYL citrate PF 100 MCG/2 ML VIAL ONE (17:16)
[2024-07-05] MEDS: SODIUM CHLORIDE 0.9% PF INJ 10 ML VIAL EPI STA (17:16)
[2024-07-05] MEDS: LIDOCAINE 2%/EPINEPHRINE 1:200,000 20 ML PF EPI STA (17:16)
[2024-07-05] MEDS: BUPIVACAINE 0.25% PF 30 ML VIAL EPI STA (17:16)
[2024-07-05] MEDS: fentaNYL citrate PF 100 MCG/2 ML VIAL EPI STA (17:16)
[2024-07-05] MEDS: ONDANSETRON INJ 2 MG/ML 2 ML VIAL IV PRN (20:39)
[2024-07-05] MEDS: fentANYL 2 MCG/ML BUPIVacaine 0.125%-NSS 100ML BAG EPI PRN (21:39)
[2024-07-05] MEDS: OXYTOCIN 30 UNITS/NSS 30 UNITS/500 ML BAG IV PRN (23:22)
[2024-07-05] MEDS ORDERED: DIPHTHER/TETAN/PERTUS Vaccine (Tdap, Adol/Adult) 0.5mL IM ONE (23:28)
[2024-07-05] MEDS ORDERED: OXYTOCIN 30 UNITS/NSS 30 UNITS/500 ML BAG IV PRN (23:28)
[2024-07-05] MEDS ORDERED: HYDROCORTISONE ACETATE 25 MG SUPP PR PRN (23:28)
--- NOTE | 2024-07-05 23:31 | Delivery Summary ---
Vaginal Delivery Summary Date of Service July 05, 2024 Vaginal Delivery Summary and 1st Degree LAC Spontaneous vaginal delivery the patient entered labor was admitted multipara the patient requested epidural artificial rupture membranes occurred she did have some intermittent decelerations these always improved with positioning she eventually progressed to fully dilated delivered a baby in occiput anterior position once the head was delivered gentle traction on the baby no excessive force used easy delivery live vigorous male Cord clamped and cut cord blood obtained placenta removed with gentle traction IV Pitocin started uterine tone excellent small first-degree tear repaired with a simple 3-0 Vicryl sponge and instrument counts correct QBL 50 mL [facility] Vaginal Delivery Charge Delivery Type Details: and 1st Degree LAC
--- NOTE | 2024-07-05 23:53 | Anesthesia Procedure Note ---
Date of Service July 05, 2024 Anesthesia Post Epidural Note Vital Signs Vital Signs: Temp Pulse Resp BP Pulse Ox 37.0 C 75 18 112/60 96 07/05/24 22:12 07/05/24 23:43 07/05/24 22:12 07/05/24 23:43 07/05/24 23:22 Notes Mental Status: alert / awake / arousable Nausea / Vomiting: adequately controlled Pain: adequately controlled Airway Patency, RR, SpO2: stable & adequate BP & HR: stable & adequate Hydration State: stable & adequate Neuraxial Anesthesia: was administered and sensory block is resolving Anesthetic Complications: no major complications apparent and Pt Satisfied with anesthetic care Epidural: Removed without complications and With tip intact
[2024-07-06] MEDS: IBUPROFEN 600 MG TAB PO PRN (01:32)
[2024-07-06] MEDS: BENZOCAINE 20% SPRY 85 APPLN/85 GM CAN EXT PRN (01:33)
[2024-07-06] MEDS: ePHEDrine sulfate 50 MG/ML AMP ONE (02:23)
[2024-07-06 02:45] VITALS: O2SAT 97
[2024-07-06] MEDS: ACETAMINOPHEN 325 MG TAB PO PRN (06:16)
--- NOTE | 2024-07-06 07:01 | Obstetrical Progress Note ---
Date of Service July 06, 2024 Assessment & Plan (1) False labor after 37 completed weeks of gestation: day #0.5 she is doing well she has no extremity pain no depression our plan is to discharge tomorrow continue current care Subjective Ambulation: ambulating normally Voiding: no voiding problems Passing Gas:: Yes Diet Tolerance:: regular diet Lochia:: Small Feeding Type:: breast feeding Physical Exam Constitutional WD/WN, vitals as above well developed and well nourished Respiratory normal respiratory effort, lungs clear to auscultation normal respiratory effort Cardiovascular RRR, no murmur, no edema Gastrointestinal (Abdomen) normal bowel sounds, soft, nontender, no hepatosplenomegaly Results & Data Vital Signs (Past 12 Hours) Vital Signs Temp Pulse Pulse Resp BP BP Pulse Ox 07/06/24 05:25 99.0 F 73 18 100/64 97 07/06/24 02:15 98.6 F 75 18 108/67 97 07/06/24 01:33 81 122/68 07/06/24 01:30 18 07/06/24 01:28 73 121/65 07/06/24 01:13 68 115/61 07/06/24 01:00 18 07/06/24 00:58 81 121/68 07/06/24 00:43 65 119/66 07/06/24 00:30 18 07/06/24 00:28 74 149/70 H 07/06/24 00:15 18 07/06/24 00:13 67 101/62 07/06/24 00:00 18 07/05/24 23:58 70 102/57 L 07/05/24 23:45 18 07/05/24 23:43 75 112/60 07/05/24 23:30 98.6 F 18 07/05/24 23:29 96 H 127/59 L 07/05/24 23:22 85 96 07/05/24 23:17 133 H 98 07/05/24 23:16 59 L 199/94 H 07/05/24 23:12 94 H 99 07/05/24 23:07 109 H 99 07/05/24 23:02 104 H 99 07/05/24 22:57 105 H 100 07/05/24 22:52 93 H 100 07/05/24 22:47 108 H 99 07/05/24 22:42 83 99 03/28/25 22:37 92 H 99 07/05/24 22:32 86 99 07/05/24 22:27 86 100 07/05/24 22:22 83 100 07/05/24 22:17 82 99 07/05/24 22:12 98.6 F 80 18 100 07/05/24 22:07 86 100 07/05/24 22:05 81 107/66 07/05/24 22:02 86 100 07/05/24 21:57 86 100 07/05/24 21:52 92 H 100 07/05/24 21:47 85 100 07/05/24 21:42 90 100 07/05/24 21:37 108 H 100 07/05/24 21:32 81 100 07/05/24 21:27 100 H 100 07/05/24 21:22 78 99 07/05/24 21:17 77 99 07/05/24 21:12 99 H 100 07/05/24 21:07 75 99 07/05/24 21:02 97 H 100 07/05/24 20:57 124 H 97 07/05/24 20:52 93 H 99 07/05/24 20:47 91 H 97 07/05/24 20:42 83 98 07/05/24 20:37 98 H 99 07/05/24 20:33 50 L 114/62 07/05/24 20:32 94 H 100 07/05/24 20:27 88 99 07/05/24 20:22 98 H 98 07/05/24 20:17 93 H 99 07/05/24 20:16 18 07/05/24 20:16 98.6 F 18 07/05/24 20:15 51 L 109/66 07/05/24 20:13 92 H 112/67 07/05/24 20:12 93 H 98 07/05/24 20:07 90 100 07/05/24 20:02 100 H 99 07/05/24 19:59 43 L 107/57 L 07/05/24 19:57 93 H 99 07/05/24 19:52 90 99 07/05/24 19:47 86 100 07/05/24 19:43 73 117/56 L 07/05/24 19:42 77 100 07/05/24 19:37 94 H 100 07/05/24 19:32 92 H 100 07/05/24 19:28 71 110/69 07/05/24 19:27 79 100 07/05/24 19:22 84 100 07/05/24 19:17 94 H 100 07/05/24 19:14 113/68 07/05/24 19:12 70 100 07/05/24 19:07 93 H 100 07/05/24 19:02 77 99 O2 Del Method 07/06/24 05:25 Room Air 07/06/24 02:15 Room Air 07/06/24 01:33 07/06/24 01:30 07/06/24 01:28 07/06/24 01:13 07/06/24 01:00 07/06/24 00:58 07/06/24 00:43 07/06/24 00:30 07/06/24 00:28 07/06/24 00:15 07/06/24 00:13 07/06/24 00:00 07/05/24 23:58 07/05/24 23:45 07/05/24 23:43 07/05/24 23:30 07/05/24 23:29 07/05/24 23:22 07/05/24 23:17 07/05/24 23:16 07/05/24 23:12 07/05/24 23:07 07/05/24 23:02 07/05/24 22:57 07/05/24 22:52 07/05/24 22:47 07/05/24 22:42 07/05/24 22:37 07/05/24 22:32 07/05/24 22:27 07/05/24 22:22 07/05/24 22:17 07/05/24 22:12 07/05/24 22:07 07/05/24 22:05 07/05/24 22:02 07/05/24 21:57 07/05/24 21:52 07/05/24 21:47 07/05/24 21:42 07/05/24 21:37 07/05/24 21:32 07/05/24 21:27 07/05/24 21:22 07/05/24 21:17 07/05/24 21:12 07/05/24 21:07 07/05/24 21:02 07/05/24 20:57 07/05/24 20:52 07/05/24 20:47 07/05/24 20:42 07/05/24 20:37 07/05/24 20:33 07/05/24 20:32 07/05/24 20:27 07/05/24 20:22 07/05/24 20:17 07/05/24 20:16 07/05/24 20:16 07/05/24 20:15 07/05/24 20:13 07/05/24 20:12 07/05/24 20:07 07/05/24 20:02 07/05/24 19:59 07/05/24 19:57 07/05/24 19:52 07/05/24 19:47 07/05/24 19:43 07/05/24 19:42 07/05/24 19:37 07/05/24 19:32 07/05/24 19:28 07/05/24 19:27 07/05/24 19:22 07/05/24 19:17 07/05/24 19:14 07/05/24 19:12 07/05/24 19:07 07/05/24 19:02
[2024-07-06 07:54] LABS: Hematocrit (blood only) 32.9 % (37.0-47.0); Hemoglobin 9.9 g/dl (12.0-16.0); Mean Corpuscular Hemoglobin 23.3 pg (25.0-34.0); Mean Corpuscular Hgb Conc 30.1 g/dL (32.0-36.0); Mean Corpuscular Volume 77.6 fL (80.0-100.0); Platelet Count 214 K/uL (130-400); RDW Coefficient of Variation 15.3 % (11.5-14.5); RDW Standard Deviation 42.3 fL (36.4-46.3); Red Blood Count 4.24 M/uL (4.20-5.40); White Blood Count 14.72 K/ul (4.8-10.8)
[2024-07-06] MEDS: DOCUSATE SODIUM 100 MG CAP PO SCH (08:10)
[2024-07-06] MEDS: PRENATAL VITAMIN 1 TAB PO SCH (08:10)
[2024-07-06 17:09] VITALS: RESP 18
[2024-07-06] MEDS: bisacodyL 5 MG TABEC PO SCH (20:18)
[2024-07-07 00:30] VITALS: TEMP 98.2
[2024-07-07 07:38] LABS: Hematocrit (blood only) 33.3 % (37.0-47.0); Hemoglobin 10.1 g/dl (12.0-16.0)
--- NOTE | 2024-07-07 07:53 | Obstetrical Progress Note ---
Date of Service July 07, 2024 Assessment & Plan (1) Encounter for care and examination after delivery: PP2 s/p , doing well. Stable for dc home Subjective Ambulation: ambulating normally Voiding: no voiding problems Passing Gas:: Yes Diet Tolerance:: regular diet Lochia:: Small Feeding Type:: breast feeding Pain well managed with medication Review of Systems Denies fevers, chills, n/v, MILLER, CP, SOB Physical Exam Constitutional WD/WN, vitals as above no acute distress Respiratory normal respiratory effort, lungs clear to auscultation Cardiovascular RRR, no murmur, no edema Gastrointestinal (Abdomen) Percussion/Palpation: abdomen soft; abdomen nontender fundus firm at umbilicus and NT Musculoskeletal BLE symmetric, nonerythematous, nontender Results & Data Vital Signs (Past 12 Hours) Vital Signs Temp Pulse Resp BP Pulse Ox O2 Del Method 07/07/24 00:02 98.2 F 91 H 18 104/64 97 Room Air
[2024-07-07 11:09] VITALS: BP 103/68; PULSE 61
[2024-07-07] MEDS ORDERED: bisacodyL 10 MG SUPP PR PRN (23:28)
== END 2024-07-07 13:15 | disposition home or self-care (01) | DRG 807 ==
LOC: OPB 08:55 → 4S1 08:59 → 4E2 07-06 02:01